=== PATIENT | female | born 1990 | race Caucasian/White ===

== ENCOUNTER 2023-02-28 14:42 | Emergency (ER) | payer MEDICAID, OTHER ==
[~2023-02-28] VITALS: Ht 172.7 cm; Wt 86.3 kg
[2023-02-28 15:00] VITALS: TEMP 97.9
[2023-02-28 15:23] LABS: Basophils # (auto) 0 10 ^3/uL (0-0.2); Basophils % (auto) 0.5 % (0.0-2.0); Eosinophils # (auto) 0.1 10 ^3/uL (0-0.8); Hematocrit 36.9 % (36.0-46.0); Hemoglobin 12.7 g/dL (12.2-16.2); Lymphocytes # (auto) 1.1 10 ^3/uL (0.4-5.4); Lymphocytes % (auto) 12.1 % (10.0-50.0); Mean Corpuscular Hemoglobin 30.9 pg (28.0-32.0); Mean Corpuscular Hgb Conc. 34.4 g/dL (32.0-36.0); Mean Corpuscular Volume 89.6 fL (80.0-100.0); Monocytes # (auto) 0.4 10 ^3/uL (0-1.3); Monocytes % (auto) 4.8 % (0.0-12.0); Neutrophils # (auto) 7.6 10 ^3/uL (1.6-8.6); Neutrophils % (auto) 81.6 % (37.0-80.0); Nucleated Red Blood Cells % 0.1 %; Red Blood Cells 4.12 10^6/uL (4.0-5.20); Red Cell Distribution Width 12.3 % (11.8-14.3); White Blood Cell 9.3 10^3/uL (4.4-10.8)
[2023-02-28 15:29] VITALS: PULSE 78; RESP 24; O2SAT 96
[2023-02-28 15:38] LABS: INR 1.08 (0.9-1.15); Prothrombin Time 11.3 sec (9.3-11.8)
[2023-02-28] MEDS ORDERED: MISO200T67 PO (17:30)
[2023-02-28] MEDS ORDERED: NS/OXYTOCIN 20UNITS 1,000 ML IV ONE (17:30)
[2023-02-28] MEDS ORDERED: LACT. RINGERS/OXYTOCIN 20UNITS 1,000 ML IV ONE (17:45)
[2023-02-28] MEDS ORDERED: KETOROLAC TROMETH 30 MG/ML 1ML VIAL IV ONE (18:30)
[2023-02-28 19:30] VITALS: PULSE 58; RESP 20; O2SAT 97
[2023-02-28] MEDS ORDERED: ONDANSETRON HCL 4 MG/2 ML VIAL IV ONE (21:00)
[2023-02-28] MEDS ORDERED: MORPHINE SULFATE 4 MG/ML SYR/VIAL IV ONE (21:00)
[2023-02-28 22:00] VITALS: O2SAT 96
[2023-02-28 22:04] VITALS: BP 92/55; PULSE 62; RESP 20
== END 2023-02-28 23:39 | disposition home or self-care (01) ==
LOC: EDBD 14:42 → ER 14:42
DX: O03.4 Incomplete spontaneous abortion without complication (principal); R10.2 Pelvic and perineal pain
CPT/HCPCS: 36415; 76801; 84702; 85025; 85610; 86850; 86900; 86901; 96365; 96366; 96375; 99285; J1885; J2270; J2405; J2590